=== PATIENT | male | born 1955 | race Caucasian/White ===

== ENCOUNTER 2024-03-09 06:40 | Inpatient (IN) | payer MEDICARE, SELFPAY ==
[2024-03-09] VITALS (7 sets, daily range): BP systolic 88–102; BP diastolic 62–76; BMI 17.7
--- NOTE | 2024-03-09 04:52 | ED.GENMED ---
History of Present Illness
General
Chief Complaint: Rectal Bleeding
Source: patient and family
Exam Limitations: none
Time Seen by Provider: 03/09/24 04:52
History of Present Illness
History of Present Illness:
See MDM
Past History
Past History
ED Past Medical History: CVA, HTN, Other (Kidney stones), Other (Migraines) and Other (Brain aneurysm)
ED Past Surgical History: Other (ENT surgery)
Social History
Tobacco: Smoker
Alcohol: Occasional
Drug: Other
Personal:
Living: with family
Employment: Other
Family History
Family History: Unable to obtain
Phy Exam
Physical Exam
Physical Exam:
See MDM
Course
Orders/Labs/Results
Orders:
Orders
03/09/24 04:38
Cardiac Monitoring- Treatment ONCE
03/09/24 04:48
Type+Screen Urgent
Complete Blood Count/With Diff Urgent
Comprehensive Metabolic Panel Urgent
PTT Urgent
Prothrombin Time Urgent
03/09/24 04:52
CT Angio Abd/Pelvis w/wo IV [CT Abd/pelvis Angio W/wo Iv] Urgent
Comment:
Reason For Exam: bright rectal bleeding
03/09/24 05:16
ABO2 Urgent
BBK Wristband Number:
Associate notified that ABO2 has been ordered: [id number]
Date: 03/09/24
Time: 05:14
Refrigerator Repairman ID: [id number]
Abnormal Lab Results
03/09/24
04:48
WBC 19.1 H 10^3/uL
(4.8-10.8)
RBC 3.68 L 10^6/uL
(4.70-6.10)
Hgb 11.7 L g/dL
(13.0-18.0)
Hct 32.6 L %
(39.0-52.0)
MCH 31.8 H pg
(27.0-31.0)
Abs Immat Gran (auto) 0.1 H 10^3/uL
(0-0.05)
Absolute Neuts (auto) 17.7 H 10^3/uL
(1.4-6.5)
Absolute Lymphs (auto) 0.3 L 10^3/uL
(1.2-3.4)
Absolute Monos (auto) 0.9 H 10^3/uL
(0.1-0.6)
Immature Gran % 0.7 H %
(0-0.5)
Neutrophils % 92.5 H %
(42.2-75.2)
Lymphocytes % 1.5 L %
(20.5-51.1)
PT 16.9 H Sec
(11.4-14.6)
APTT 35.6 H Sec
(23.4-35.0)
Carbon Dioxide 21 L mmol/L
(22-30)
BUN 28 H mg/dl
(9-20)
Glucose 212 H mg/dl
(70-99)
03/09/24 04:48
03/09/24 04:48
Vital Signs
Initial and Last Documented VS:
Initial Vital Signs
Temp Pulse Resp BP Pulse Ox
97.6 F 102 18 90/62 97
03/09/24 04:37 03/09/24 04:37 03/09/24 04:37 03/09/24 04:37 03/09/24 04:37
Last Documented Vital Signs
Temp Pulse Resp BP Pulse Ox
97.6 F 93 21 92/68 96
03/09/24 04:37 03/09/24 05:00 03/09/24 05:00 03/09/24 05:00 03/09/24 05:00
MDM/Problems Addressed
Differential Diagnosis Includes:
HPI and MDM Narrative:
69-year-old male presenting for evaluation of bright red rectal bleeding. Per EMS, patient had bloody diarrhea. When I examined his buttock, there is bright red rectal bleeding noted. Patient is not on blood thinners. Symptoms appear to have
started earlier this evening. Given the brisk bleeding, will obtain CT angiogram to look for source
Physical exam
General: Weak and frail
HEENT: protecting airway
Neck: appears supple
CV: No evidence of cyanosis
Resp: No accessory muscle use
Abd: Non-distended and nontender
Rectal: Bright red rectal bleeding noted
Extremities: No deformities
Neuro: Expressive aphasia. Appears confused and disoriented but baseline per due to prior stroke
Psych: Normal affect
Skin: Intact
Problems Addressed including Acute and Chronic Conditions affecting care:
1. Bright red rectal bleed
Acuity: acute
Prognosis: stable
Details: Will obtain CT angiogram given the brisk bleed
Updates
6:07 AM: CT angiogram concerning for a ruptured abdominal aortic aneurysm with active bleeding. I immediately discussed the case with his who indicated that he is a poor surgical candidate. They knew about the aneurysm 6 years ago and
declined surgery at that time due to his frailty. I did discuss that this could be life ending. acknowledges this and states he is DNR and declines any surgery
Differential Diagnosis (but not limited to): Colon cancer, diverticulosis, internal hemorrhoid
Testing considered: CT A/P
Drug therapy (if applicable): OTC meds, please see d/c instruction regarding Rx drugs
Amount and/or Complexity of Data Reviewed
Clinical info obtained from: Patient
External data reviewed: N/A
Labs I independently reviewed (but not limited to): Leukocytosis, mild anemia
Radiology: The CT scan was personally and independently reviewed. In addition, official CT report reviewed.
Pulse Ox: not hypoxic
EKG independently reviewed: N/A
Rope Tow Operator: N/A
Critical Care: N/A
Risk of Complication:
Social Determinants of health: Good social support
Discussed with other providers: Hospitalist
Escalation of Care includes Admit/Obs: Given the intra-abdominal bleeding, will admit for palliative care
Occasional wrong word or 'sound a like' substitutions may have occurred due to the inherent limitations of voice recognition software. Read the chart carefully and recognize, using context, where substitutions have occurred.
*Critical Care Note
Total Time (30-74mins, 75-104mins- exclusive of procedures): Not Applicable
ED Attending Note
-
Portions of this chart may have been created with voice recognition software.� Occasional wrong word or��sound alike� substitutions may have occurred due to the inherent limitations of voice recognition software.
Discharge Plan
Departure
Patient Disposition: Admit
Date of Disposition: 03/09/24
Time of Disposition: 05:43
Admit to: Telemetry
Presentation/result/management discussed w/ accepting MD/DO: Hospitalist
Discharge Problem:
Acute lower gastrointestinal bleeding
Prescriptions:
No Action
candesartan 16 MG tablet
16 mg PO DAILY
sennosides [senna] 1 TABLET tablet
2 tab PO HS
famotidine 20 MG tablet
20 mg PO DAILY
fluoxetine [Prozac] 40 mg Capsule
40 mg PO DAILY
levetiracetam [Keppra] 500 mg Tablet
500 mg PO DAILY
levetiracetam [Keppra] 500 mg Tablet
1,000 mg PO .QPM
chlorthalidone 25 mg Tablet
25 mg PO DAILY
baclofen [Lioresal] 20 mg Tablet
20 mg PO DAILY
atorvastatin 80 MG tablet
80 mg PO QPM Qty: 30 0RF
tamsulosin 0.4 MG capsule
0.4 mg PO DAILY Qty: 30 0RF
Referrals:
Bhargav Gates MD [Family Provider] -
Interventions
Interventions:
*Risk Screen - Suicide Last Done: 03/09/24 04:37
*General Assessment Last Done: 03/09/24 04:37
*Neglect/Abuse Screening Last Done: 03/09/24 04:37
JA-Gbdktx-Gontxnaeby Assessment Last Done: 03/09/24 05:08
ED- Cardiac Assessment Last Done: 03/09/24 05:08
ED- Pulmonary Assessment Last Done: 03/09/24 05:08
Discharge Date and Time
Print Language: MOZAMBICAN
[2024-03-09 05:10] LABS: % Basophils 0.2 % (0-2); % Eosinophils 0.6 % (0-6); % Immature Granulocytes 0.7 % (0-0.5); % Lymphocytes 1.5 % (20.5-51.1); % Monocytes 4.5 % (1.7-9.3); % Neutrophils 92.5 % (42.2-75.2); Absolute Eosinophils 0.1 10^3/uL (0-0.7); Absolute Immature Granulocytes 0.1 10^3/uL (0-0.05); Absolute Lymphocytes 0.3 10^3/uL (1.2-3.4); Absolute Monocytes 0.9 10^3/uL (0.1-0.6); Absolute Neutrophils 17.7 10^3/uL (1.4-6.5); Hematocrit 32.6 % (39.0-52.0); Hemoglobin 11.7 g/dL (13.0-18.0); Mean Corp Hgb Conc. 35.9 g/dL (33.0-37.0); Mean Corpuscular Hgb 31.8 pg (27.0-31.0); Mean Corpuscular Volume 88.6 fL (80.0-94.0); Nucleated Red Blood Cells % 0 % (-); Platelet Count 146 10^3/uL (130-400); Red Blood Cell Count 3.68 10^6/uL (4.70-6.10); Red Cell Dist. Width 13.5 % (11.5-14.5); White Blood Cell Count 19.1 10^3/uL (4.8-10.8)
[2024-03-09 05:15] LABS: INR 1.37; PT 16.9 Sec (11.4-14.6)
[2024-03-09 05:16] LABS: APTT 35.6 Sec (23.4-35.0)
[2024-03-09 05:25] LABS: ALT (SGPT) 19 U/L (0-50); AST (SGOT) 30 U/L (17-59); Alkaline Phosphatase 67 U/L (38-126); Blood Urea Nitrogen 28 mg/dl (9-20); Calcium 9.8 mg/dl (8.4-10.2); Carbon Dioxide 21 mmol/L (22-30); Chloride 104 mmol/L (98-107); Estimated Creatinine Clearance 62 ml/min; Glucose 212 mg/dl (70-99); Potassium 3.5 mmol/L (3.5-5.1); Sodium 141 mmol/L (135-145); Total Bilirubin 1.2 mg/dl (0.2-1.3); Total Protein 6.3 g/dl (6.3-8.2); eGFR > 60.00
[2024-03-09] MEDS: MORPHINE SULFATE 4 MG IV (06:19)
--- NOTE | 2024-03-09 07:25 | HPS.HSE ---
Family Physician
-
Family Physician: Bhargav Gates
Chief Complaint
-
Rectal bleeding.
History of Present Illness
This is a 69-year-old male with past medical history of CVA, hypertension, seizure disorder not otherwise stated who is bedbound with significantly diminished cognitive function presenting to the emergency department with bright red blood per rectum.
Patient had bloody diarrhea. In ED there is bright red rectal bleeding noted. Patient is not on blood thinners. Symptoms appear to have started earlier this evening. CT angiogram was obtained to look for source. ED physician discussed findings
as follows CT angiogram concerning for a ruptured abdominal aortic aneurysm with active bleeding. This was discussed with his who indicated that he is a poor surgical candidate. They knew about the aneurysm 6 years ago and declined surgery
at that time due to his frailty. Given that this could be life ending, acknowledges this and states he is DNR and declines any surgery. Given the possible ruptured abdominal aortic aneurysm he is not a candidate for endoscopic procedures.
Family also understood this. Decision was made to make him comfort measures.
Official read Per Radiology:
1. SEVERE PNEUMATOSIS in the distal descending and sigmoid colon dissecting into the SIGMOID MESOCOLON around a 4.2 cm focal region of severe circumferential wall thickening in the sigmoid colon suspicious for colonic adenocarcinoma (possibly
bleeding with active extravasation). VERY SEVERE CONSTIPATION with extensive fecal material throughout the colon and rectum. Acute stercoral colitis and ischemic colitis are diagnostic possibilities.
2. MASSIVE FUSIFORM INFRARENAL ABDOMINAL AORTIC ANEURYSM (9.2 cm diameter and 18.9 cm in length) with a CONTAINED RUPTURE of the anterolateral wall with an irregular focal outpouching. Likely impending rupture of the aneurysm, but no current
evidence for acute retroperitoneal hemorrhage or active extravasation.
Medical History
Past Medical History
Past Medical History: Reports Other
Additional Past Medical History:
Abdominal aortic aneurysm
BPH
CVA
Seizure disorder
Past Surgical History: Reports None
Social History
Unable to obtain full social history at this time due to: Patient Non-verbal
Family History
Family History: Not pertinent
Allergies / Home Medications
Allergies reflects when Allergies were last updated in [facility].
Home Medications with original date entered in [facility]
Allergy/Medication List:
Allergies
Allergy/AdvReac Type Severity Reaction Status Date / Time
Penicillins Allergy Severe Hives Verified 03/09/24 04:36
Home Medications
atorvastatin 80 mg tablet 80 mg PO QPM ##30 09/20/17
tamsulosin 0.4 mg capsule 0.4 mg PO DAILY #30 caps 09/20/17
candesartan 16 mg tablet 16 mg PO DAILY 02/01/18
famotidine 20 mg tablet 20 mg PO DAILY 02/01/18
sennosides 8.6 mg tablet (senna) 2 tab PO HS 02/01/18
baclofen 20 mg tablet 20 mg PO DAILY 03/09/24
chlorthalidone 25 mg tablet 25 mg PO DAILY 03/09/24
fluoxetine 40 mg capsule (Prozac) 40 mg PO DAILY 03/09/24
levetiracetam 500 mg tablet (Keppra) 1,000 mg PO .QPM 03/09/24
levetiracetam 500 mg tablet (Keppra) 500 mg PO DAILY 03/09/24
Review of Systems
-
Unable to obtain full review of systems at this time due to: Dementia
Physical Exam
Vital Signs
Vital Signs
Temp Pulse Resp BP Pulse Ox
97.6 F 106 18 102/75 96
03/09/24 04:37 03/09/24 07:00 03/09/24 07:00 03/09/24 07:08 03/09/24 07:00
Physical Exam
General: Appears Chronically Ill
HEENT: NormoCephalic, Anicteric, Moist mucous membranes and Atraumatic
Respiratory: Clear
Cardiac: S1/S2 and Regular Rhythm
GI: Soft and Other (did not compress abdomen)
Rectal: Red
Genito-urinary: Deferred by me
Musculoskeletal: No Clubbing and No Cyanosis
Skin: Warm
Neuro: Awake
Hematologic/Lymphatic: No Lymphadenopathy
Psych: Calm
Laboratory Results
-
03/09/24 04:48
03/09/24 04:48
Laboratory Results
PT 16.9 Sec (11.4-14.6) H 03/09/24 04:48
INR 1.37 03/09/24 04:48
APTT 35.6 Sec (23.4-35.0) H 03/09/24 04:48
Total Bilirubin 1.2 mg/dl (0.2-1.3) 03/09/24 04:48
AST 30 U/L (17-59) 03/09/24 04:48
ALT 19 U/L (0-50) 03/09/24 04:48
Alkaline Phosphatase 67 U/L (38-126) 03/09/24 04:48
Data Reviewed
-
CT Scan: Report Reviewed by me
Lab Data: Labs Reviewed by me
Old Records: Reviewed
Impression/Plan
-
IMPRESSION:
Patient with history of hypertension, CVA not on anticoagulation, seizure disorder and BPH who has known enlarging abdominal aortic aneurysm presented to the emergency department with bright red blood per rectum. Had bloody output from the rectum
in the ED. Did remain hemodynamically stable while in the ED. Evaluation with a CT scan showed ruptured AAA but no acute extravasation. There is also a new colonic mass concerning for adenocarcinoma. No diverticulosis no obvious diverticular
bleeding. Suspect bleeding inside secondary to ischemic colitis, adenocarcinoma.
Unfortunately the evaluation of the CT scan is highly concerning for impending AAA rupture although no current hemorrhage found on the imaging. Given AAA patient is not a candidate for endoscopic procedures. For tomorrow family is aware of AAA and
with knowledge that it is non-operable for him they have been told that the AAA is terminal.
After discussing pros and cons with the family and futility of any measures at this time family moved towards comfort measures.
PLAN:
GI bleed with impending rupture of Triple AAA, new colonic mass -
- admit for comfort measures
- consult to hospice in am, reasonable chance of transfer to hospice unit
- d/c all oral medications
- pain control, antiemetics, anxiolytics and anti seizure meds for comfort. I will continue keppra only to prevent the discomfort of a seizure
- no blood draws or vitals
Code Status - Comfort measures only, DNR
--- NOTE | 2024-03-09 08:18 | W.PN.HOSP.TC ---
Today's Communication/Plan
-
Continue Comfort Care
Assessment / Plan
Assessment / Plan
Physical Exam
General: Appears Chronically Ill
HEENT: Normocephalic
Respiratory: CTAB
Cardiac: S1/S2 and Regular Rhythm
GI: Soft and Nontender. Bowel sounds present.
Musculoskeletal: No Cyanosis
Skin: Warm
Neuro: Awake
Psych: Calm
Assessment/Plan
Ayo Hackett - 69 y/o male with history of significantly diminished cognitive function presented with bloody diarrhea. CTA imaging showed a large AAA concerning for a ruptured abdominal aortic aneurysm with active bleeding. Patient's family knew
about the aneurysm 6 years ago and declined surgery at that time due to patient's frailty. Patient made comfort measures given no intervention has been recommended for the aneurysm in the past due to risks (patient's confirmed that he is a poor
surgical candidate). Family was at bedside and understood this, and patient's family also confirmed and agreed (on March 09, 2024) that he is comfort care; comfort care was explained to them and they understood what that meant. Given that this
could be life ending for the patient, acknowledged this and states he is DNR and declined any surgery. Given the possible ruptured abdominal aortic aneurysm he is not a candidate for endoscopic procedures. Family also understood this.
Decision was made to make him comfort measures.
-Continue Comfort Care
Anticipated Discharge: > 48 hours
Subjective/Interval History
-
Date of Service: March 09, 2024
Patient was seen and examined, and his family was present at bedside. He appeared to be comfortable.
Objective Data
-
Labs:
Laboratory Results
03/09/24
04:48
WBC 19.1 H
Hgb 11.7 L
Hct 32.6 L
Plt Count 146
PT 16.9 H
INR 1.37
APTT 35.6 H
Sodium 141
Potassium 3.5
Chloride 104
Carbon Dioxide 21 L
BUN 28 H
Creatinine 0.9
Glucose 212 H
Calcium 9.8
Total Bilirubin 1.2
AST 30
ALT 19
Alkaline Phosphatase 67
Vital Signs:
Vital Signs
Temp Pulse Resp BP Pulse Ox
97.6 F 106 18 102/75 96
03/09/24 04:37 03/09/24 07:00 03/09/24 07:00 03/09/24 07:08 03/09/24 07:00
[2024-03-09] MEDS: MORPHINE SULFATE 2 MG IV ×4 (08:44→22:04)
[2024-03-09] MEDS: ATIVAN 0.5 MG PO ×2 (10:12→14:25)
--- NOTE | 2024-03-09 12:14 | PTCARENOTE ---
Pt was getting anxious/agitated - PO ativan given. Pt now resting comfortably. Family at bedside. No episodes of rectal bleeding.
--- NOTE | 2024-03-09 13:15 | CM ---
CM attempted to meet with family. is not in room. CM will await to return to discuss hospice options.
[2024-03-09] MEDS: LEVSIN ORAL DROPS 0.125 MG SL (13:35)
--- NOTE | 2024-03-09 13:37 | CM ---
CM spoke with patient's family and they are agreeable to hospice consult with Hospice. CM sent referral via [facility] and TT'd combination machine tool operator a and p mechanic. CM updated bedside RN and hospitalist.
--- NOTE | 2024-03-09 15:26 | HOSPNOTE ---
Spoke with spouse and explained comfort measures. We will continue to follow and support. Patient will be admitted under comfort and go to room 2133. Spoke with attending and in agreement with plan.
--- NOTE | 2024-03-09 16:41 | PTCARENOTE ---
Patient admitted from ED. Report received from Andrew DENNIS. Family at bedside.
[2024-03-09] MEDS: LIORESAL 5 MG PO (20:05)
[2024-03-09] MEDS: HALDOL 1 MG IV (21:58)
[2024-03-10] MEDS: MORPHINE SULFATE 2 MG IV ×3 (03:03→21:34)
[2024-03-10] MEDS: HALDOL 1 MG IV ×3 (03:04→21:33)
[2024-03-10 08:21] LABS: Glucose - Point of Care 157 mg/dl (70-99)
[2024-03-10 08:32] VITALS: BP 95/62
[2024-03-10] MEDS: FLUSH (NSS) 2 FLUSH IV (10:47)
--- NOTE | 2024-03-10 11:55 | HOSPNOTE ---
Hospice is following for support. Patient is presently on comfort care. No unmanaged symptoms at this time to warrant GIP level of hospice care. Spoke with Primary RN. is at bedside and assisted with care. Patient medicated with IV morphine and
Haldol before care. Primary RN will reach out if hospice support is needed. Emotional support provided. Hospice will continue to follow.
--- NOTE | 2024-03-10 16:14 | W.PN.HOSP.TC ---
Today's Communication/Plan
-
Continue Comfort Care
Assessment / Plan
Assessment / Plan
Physical Exam
General: Appears Chronically Ill
HEENT: Normocephalic
Respiratory: CTAB
Cardiac: S1/S2 and Regular Rhythm
GI: Soft and Nontender. Bowel sounds present.
Musculoskeletal: No Cyanosis
Skin: Warm
Neuro: Sleeping, but arousable.
Psych: Calm
Assessment/Plan
Ayo Hackett - 69 y/o male with history of significantly diminished cognitive function presented with bloody diarrhea. CTA imaging showed a large AAA concerning for a ruptured abdominal aortic aneurysm with active bleeding. Patient's family knew
about the aneurysm 6 years ago and declined surgery at that time due to patient's frailty. Patient made comfort measures given no intervention has been recommended for the aneurysm in the past due to risks (patient's confirmed that he is a poor
surgical candidate). Family was at bedside and understood this, and patient's family also confirmed and agreed (on March 09, 2024) that he is comfort care; comfort care was explained to them and they understood what that meant. They confirmed
that patient's wishes were that if his AAA were to rupture, patient's wishes would be to be made comfortable/comfort care. Given that this could be life ending for the patient, acknowledged this and states he is DNR and declined any surgery.
Given the ruptured abdominal aortic aneurysm he is not a candidate for endoscopic procedures. Family also understood this. Decision was made to make him comfort measures.
-Continue Comfort Care
-Spoke to patient's family inside patient's room today
Anticipated Discharge: > 48 hours
Subjective/Interval History
-
Date of Service: March 10, 2024
Patient was seen and examined, with his family present in his room. He appeared to be comfortable.
Objective Data
-
Vital Signs:
Vital Signs
Temp Pulse Resp BP Pulse Ox
97.1 F 110 19 95/62 94
03/10/24 08:32 03/10/24 08:32 03/10/24 08:32 03/10/24 08:32 03/10/24 08:32
I&O
03/09/24 03/10/24 03/11/24
06:59 06:59 06:59
Intake Total 650 / 650
Output Total 851 / 851
Balance -201 / -201
[2024-03-10 19:36] VITALS: BP 94/65
[2024-03-11 07:45] VITALS: BP 121/91
[2024-03-11] MEDS: MORPHINE SULFATE 2 MG IV ×2 (08:08→21:06)
[2024-03-11] MEDS: FLUSH (NSS) 2 FLUSH IV ×2 (08:09→18:01)
--- NOTE | 2024-03-11 09:00 | PTCARENOTE ---
Asked turn pt and family member states 'he's fine right now' Pt assessed and pillows propped for extra comfort. Will cont to monitor.
--- NOTE | 2024-03-11 11:00 | PTCARENOTE ---
Hospice came into see pt and touch base with family. Pt care discussed and pt was adamant about not wanting to get washed up or turned. Continued to provide pt care and information to family's needs. Will cont to monitor.
--- NOTE | 2024-03-11 11:49 | HOSPNOTE ---
Hospice continues to follow for support. Patient is not inpatient hospice appropriate at this time. Patient remains on comfort. Spoke to primary RN, she is wondering if patient is even comfort appropriate and if he could potentially go home. Will
ask liaison and CM to follow up tomorrow on discharge planning. Hospice came in person today to offer support and offer personal care assistance. Emotional support provided.
--- NOTE | 2024-03-11 13:49 | W.PN.HOSP.TC ---
Today's Communication/Plan
-
Patient remains comfortable
Consider home with home hospice if patient is approved for it
Continue Comfort Care
Assessment / Plan
Assessment / Plan
Physical Exam
General: Appears Chronically Ill
HEENT: Normocephalic
Respiratory: Equal air entry bilaterally
Cardiac: S1/S2 and Regular Rhythm
GI: Soft and Nontender. Bowel sounds present.
Musculoskeletal: No Cyanosis
Skin: Warm
Neuro: Alert, Awake, sleeping at times
Psych: Calm
Assessment/Plan
Ayo Hackett - 69 y/o male with history of significantly diminished cognitive function presented with bloody diarrhea. CTA imaging showed a large AAA concerning for a ruptured abdominal aortic aneurysm with active bleeding. Patient's family knew
about the aneurysm 6 years ago and declined surgery at that time due to patient's frailty. Patient made comfort measures given no intervention has been recommended for the aneurysm in the past due to risks (patient's confirmed that he is a poor
surgical candidate). Family was at bedside and understood this, and patient's family also confirmed and agreed (on March 09, 2024) that he is comfort care; comfort care was explained to them and they understood what that meant. They confirmed
that patient's wishes were that if his abdominal aortic aneurysm were to rupture, patient's wishes would be to be made comfortable and comfort care. Given that this could be life ending for the patient, acknowledged this and stated that he is
DNR and declined any surgery. Given the ruptured abdominal aortic aneurysm he is not a candidate for endoscopic procedures. Family also understood this. Decision was made to make patient comfort measures.
-Continue Comfort Care
-Consider home with home hospice if patient is approved for it
-Spoke to patient's family inside patient's room today
Anticipated Discharge: > 48 hours
Subjective/Interval History
-
Date of Service: March 11, 2024
Patient was seen and examined. He appeared to be comfortably, family was present in the room at the time of patient encounter.
Objective Data
-
Vital Signs:
Vital Signs
Temp Pulse Resp BP Pulse Ox
97.5 F 97 14 121/91 95
03/11/24 07:45 03/11/24 07:45 03/11/24 07:45 03/11/24 07:45 03/11/24 08:00
I&O
03/10/24 03/11/24 03/12/24
06:59 06:59 06:59
Intake Total 650 / 650 120 / 120
Output Total 851 / 851
Balance -201 / -201 120 / 120
[2024-03-11] MEDS: HALDOL 1 MG IV ×2 (18:00→21:08)
[2024-03-11 23:29] VITALS: BP 117/81
[2024-03-12] MEDS: MORPHINE SULFATE 2 MG IV ×3 (01:54→12:32)
[2024-03-12] MEDS: HALDOL 1 MG IV ×2 (01:55→09:31)
[2024-03-12 07:15] VITALS: BP 130/87
--- NOTE | 2024-03-12 09:37 | CM ---
tt Hanna Ocampo liaison regarding home on hospice.
She spoke with and stated no equipment needed & to set up transport.
Dr. Forbes spoke with family.
CM met with son Greyson and & offered support.
Would like transport set up around 1pm
Ambulance forms on chart. OOH DNR signed & on chart. IMM explained & signed.
PLAN: Discharge to home with Hospice.
Transport via ambulance set for 1pm.
--- NOTE | 2024-03-12 10:11 | HOSPNOTE ---
Met with spouse and son and the plan is for patient to go home today with hospice. Family is in agreement with hospice and the philosophy. Transport is scheduled for 1pm OOH DNR will be needed on chart. Once patient is home the hospice nurse will
admit onto our service. No equipment needed at this time. The son will garbage pick up worker a local fill of Morphine, Ativan and Haldol. Attending and CM aware of plan. Spoke with floor RN and aware of discharge and plan.
--- NOTE | 2024-03-12 11:26 | W.PN.HOSP.TC ---
Today's Communication/Plan
-
dc to Home Hosp[facility]
Assessment / Plan
Assessment / Plan
Assessment/Plan
Ayo Hackett - 69 y/o male with history of significantly diminished cognitive function presented with bloody diarrhea. CTA imaging showed a large AAA concerning for a ruptured abdominal aortic aneurysm with active bleeding. Patient's family knew
about the aneurysm 6 years ago and declined surgery at that time due to patient's frailty. Patient made comfort measures given no intervention has been recommended for the aneurysm in the past due to risks (patient's confirmed that he is a poor
surgical candidate). Family was at bedside and understood this, and patient's family also confirmed and agreed (on March 09, 2024) that he is comfort care; comfort care was explained to them and they understood what that meant. They confirmed
that patient's wishes were that if his abdominal aortic aneurysm were to rupture, patient's wishes would be to be made comfortable and comfort care. Given that this could be life ending for the patient, acknowledged this and stated that he is
DNR and declined any surgery. Given the ruptured abdominal aortic aneurysm he is not a candidate for endoscopic procedures. Family also understood this. Decision was made to make patient comfort measures.
-Continue Comfort Care
Reviewed with , nursing, and CM who has spoken to Hospice Nursing, will dc to Home Hospice now
see dictated note
multiple communication, extensive visit
completed out of hospital DNR form
More than 30 minutes spent in discharge including
Final examination of the patient
Summarizing hospital stay
Instructions for continuing care to all relevant caregivers
Preparation of discharge records, prescriptions, and referral forms
Total time spent (in minutes): 60
Anticipated Discharge: Today
Subjective/Interval History
-
Date of Service: March 12, 2024
Awake, alert, very weak
Objective Data
-
Vital Signs:
Vital Signs
Temp Pulse Resp BP Pulse Ox
97.7 F 90 16 130/87 92
03/12/24 07:15 03/12/24 07:15 03/12/24 07:15 03/12/24 07:15 03/12/24 07:15
I&O
03/11/24 03/12/24 03/13/24
06:59 06:59 06:59
Intake Total 120 / 120 240 / 240
Balance 120 / 120 240 / 240
Review of Systems
-
History Source: Family (reviewed with )
Constitutional: Denies Fever
EENT: Reports No Symptoms Reported
Respiratory: Reports No Symptoms
Cardiac: Reports No Symptoms
Abdomen/GI: Denies Abdominal Pain
Physical Exam
-
General: Well Developed, Appears Chronically Ill and Cachectic
HEENT: Normocephalic, Atraumatic and Moist Mucous Membranes
Respiratory: Clear to Auscultation; Negative Wheezes, Rales or Rhonchi
Cardiac: Regular Rhythm and S1/S2
GI: Soft, Nontender and Other (pulsatile abdominal aortic aneursym)
Musculoskeletal: No Clubbing, No Cyanosis and No Edema
Neuro: Awake and Alert
--- NOTE | 2024-03-12 11:41 | W.DS.TRANS ---
DC Summary - Cardiac Cath Technician
-
Discharge Instructions:
Discharge Diagnosis/Procedures Abdominal Aortic Aneurysm
Diet Regular
Additional Activity bedrest
Driving Restrictions No driving
Bathing Restrictions None
Blood Work none
Other Services Hospice
Instructions:
Stand-Alone Forms:
Changes to Home Medications: No
Discharge Medications:
DC Medications w/original date entered in [facility]
candesartan 16 mg tablet 16 mg PO DAILY Blood Pressure 02/01/18
famotidine 20 mg tablet 20 mg PO DAILY Gastrointestinal Issue 02/01/18
aspirin 81 mg chewable tablet 81 mg PO DAILY Blood Clot Prevention/Tx 03/09/24
baclofen 20 mg tablet 20 mg PO DAILY Muscle Spasms 03/09/24
chlorthalidone 25 mg tablet 25 mg PO DAILY Fluid Retention/Swelling 03/09/24
fluoxetine 40 mg capsule (Prozac) 40 mg PO DAILY Depression 03/09/24
levetiracetam 500 mg tablet (Keppra) 1,000 mg PO QPM Seizures 03/09/24
levetiracetam 500 mg tablet (Keppra) 500 mg PO DAILY Seizures 03/09/24
sennosides 8.6 mg tablet (senna) 17.2 mg PO HS Constipation 03/09/24
atorvastatin 80 mg tablet 80 mg PO QPM High Cholesterol 03/10/24
tamsulosin 0.4 mg capsule 0.4 mg PO DAILY Urinary Issue 03/10/24
Home Medication Changes
Pending Results: No
[2024-03-12] MEDS: ATIVAN 0.5 MG IV (12:32)
== END 2024-03-12 13:27 | disposition hospice, home (50) | DRG 301 ==
LOC: 2 NORTH 06:40
PROVIDERS: ADMITTING PHYSICIAN Internal Medicine; ATTENDING PHYSICIAN Internal Medicine; EMERGENCY PHYSICIAN Student in an Organized Health Care Education/Training Program; FAMILY PHYSICIAN Family Medicine
DX: I71.33 Infrarenal abdominal aortic aneurysm, ruptured (principal); F17.200 Nicotine dependence, unspecified, uncomplicated; Z66 Do not resuscitate; Z86.73 Personal history of transient ischemic attack (TIA), and cerebral infarction without residual deficits; Z51.5 Encounter for palliative care
CPT/HCPCS: 74174; 80053; 82962; 85025; 85610; 85730; 86850; 86900; 86901; 96374; 99285; Q9967